=== PATIENT | female | born 1940 | race Caucasian/White ===

== ENCOUNTER 2021-07-12 13:41 | Emergency (ER) | payer MEDICARE ==
--- NOTE | 2021-07-12 14:32 | ED Physician Documentation ---
History of Present Illness - Stated complaint Stated Complaint: GLF - Chief complaint Chief Complaint: Trauma Hd/Nk - History obtained from History obtained from: Patient, Family - History of Present Illness Timing: Today Pain level max: 8 Pain level now: 8 - Additonal information Additional information: 80-year-old female presents to the emergency department after she was on her deck with her walker today when her walker fell off the deck, she fell backwards landed on her left side injuring her neck, head neck, shoulder and left ribs. Worse with movement, better with rest. She is on Plavix. She used to be on Eliquis but has been off this for 2 months. No numbness or tingling. Placed in a cervical collar by EMS. Brought in for evaluation. She states she was able to walk after the event. No hip pain. Review of Systems Ten Systems: 10 systems reviewed and negative Constitutional: denies: Fever, Chills Nose: denies: Rhinorrhea / runny nose, Congestion Respiratory: denies: Dyspnea, Cough GI: denies: Nausea, Vomiting, Diarrhea Skin: denies: Rash Musculoskeletal: denies: Neck pain, Back pain Neurologic: denies: Headache PD PAST MEDICAL HISTORY - Past Medical History Past Medical History: Yes Cardiovascular: Hypertension, High cholesterol, Coronary artery disease - Present Medications Home Medications: Ambulatory Orders Medication Instructions Recorded Confirmed Oxycodone HCl [Roxicodone] 5 - 10 mg PO Q6H PRN #20 tablet 07/12/21 - Allergies Allergies/Adverse Reactions: Allergies Allergy/AdvReac Type Severity Reaction Status Date / Time No Known Drug Allergies Allergy Verified 07/12/21 13:56 PD ED PE NORMAL - Vitals Vital signs reviewed: Yes - General General: Alert and oriented X 3, No acute distress, Well developed/nourished - HEENT HEENT: PERRL, Moist mucous membranes - Neck Neck: Supple, no meningeal sign, Other (Tender palpation upper and mid C-spine. No step-off or deformity. Cervical collar in place) - Cardiac Cardiac: RRR, Strong equal pulses - Respiratory Respiratory: No respiratory distress, Clear bilaterally - Abdomen Abdomen: Normal bowel sounds, Soft, Non tender, Non distended - Derm Derm: Warm and dry - Extremities Extremities: Other - Neuro Neuro: Alert and oriented X 3 - Psych Psych: Normal mood, Normal affect - Free text exam Free text exam: Tender to palpation over the left anterior ribs. Reproduces her pain. No crepitus or ecchymosis. Also tender to palpation over the left shoulder, limited range of motion of the glenohumeral joint secondary to pain. No gross deformity. Neurovascular intact. Otherwise normal examination of the arm. Normal examination of the bilateral hips. Normal examination of the right arm. Results - Vitals Vitals: Vital Signs - 24 hr 07/12/21 07/12/21 07/12/21 13:51 16:20 16:50 Temperature 36.7 C Heart Rate 78 70 Respiratory 16 16 Rate Blood Pressure 144/65 H 130/48 L O2 Saturation 94 92 94 Oxygen O2 Source Room air - Rads (name of study) Head CT. Radiology: Final report received, EMP read contemporaneously, See rad report Cervical spine CT Radiology: Final report received, EMP read contemporaneously, See rad report Chest without CT Radiology: Final report received, EMP read contemporaneously, See rad report Left shoulder x-ray Radiology: Final report received, EMP read contemporaneously, See rad report PD MEDICAL DECISION MAKING - ED course Complexity details: reviewed results, re-evaluated patient, considered differential, d/w patient, d/w philatelic consultant ED course: 80-year-old female status post ground-level fall. She does have a mildly displaced fracture of the sternal manubrium and mildly displaced rib fractures. She has come to abnormalities of the left kidney, possible masslike. No outside imaging is available. She will have a follow-up CT with her doctor. She also has a spiculated lung mass, suspicious for malignancy. She will follow-up with her doctor for this for a CT scan as well. Her pain is well controlled. No hypoxia. No respiratory distress. Does not want to be admitted. Patient is well-appearing, nontoxic. Afebrile. Patient counseled regarding signs and symptoms for which I believe and urgent re-evaluation would be necessary. Patient with good understanding of and agreement to plan and is comfortable going home at this time This document was made in part using voice recognition software. While efforts are made to proofread this document, sound alike and grammatical errors may occur. CT chest IMPRESSION: Mildly displaced fracture of the sternal manubrium with mildly displaced fractures of the immediately adjacent anterior most left first, second, and third ribs. Contour abnormalities of the left kidney which appear masslike. Correlation with any prior outside imaging would be helpful to document stability. The absence of any prior outside imaging, nonemergent routine CT of the abdomen and pelvis should be obtained. Spiculated lung mass, highly suspicious for malignancy. CT Cervical Spine IMPRESSION: No definite CT evidence of acute traumatic cervical spine injury. However, there is asymmetric widening of the left C3-C4 facet and of the right C4-C5 facet. This is not favored to represent an acute traumatic process, as there is extensive degenerative change with irregular erosions along the opposing facet surfaces in addition to extensive subchondral cystic change and sclerosis. Ossific densities within and adjacent to the facets at these locations are likely degenerative or dystrophic. Correlate for corresponding focal point tenderness. MRI could be considered to evaluate for ligamentous injury, although the appearance is favored to represent degenerative change. CT HEAD IMPRESSION: 1. No acute intracranial process. 2. Moderate atrophy and chronic microvascular ischemic changes. Departure - Departure Disposition: 01 Home, Self Care Clinical Impression: Lung mass, Kidney mass Sternum fx Qualifiers: Encounter type: initial encounter Sternal location: body of sternum Fracture type: closed Qualified Code(s): S22.22XA - Fracture of body of sternum, initial encounter for closed fracture Left rib fracture Qualifiers: Encounter type: initial encounter Rib fracture type: multiple ribs Fracture type: closed Qualified Code(s): S22.42XA - Multiple fractures of ribs, left side, initial encounter for closed fracture Condition: Good Instructions: ED Fx Rib Follow-Up: Alayna Hernandez MD [Primary Care Provider] - Prescriptions: Oxycodone HCl [Roxicodone] 5 - 10 mg PO Q6H PRN #20 tablet PRN Reason: Pain Comments: You can use the oxycodone at home as needed for pain. Please follow-up with your doctor for further care. Return if you worsen. There is a lung mass on your CT scan as well as a mass in your kidney. These will both need further imaging with your doctor. The readings are listed below. Your prescriptions were sent to the [facility] pharmacy CT chest IMPRESSION: Mildly displaced fracture of the sternal manubrium with mildly displaced fractures of the immediately adjacent anterior most left first, second, and third ribs. Contour abnormalities of the left kidney which appear masslike. Correlation with any prior outside imaging would be helpful to document stability. The absence of any prior outside imaging, nonemergent routine CT of the abdomen and pelvis should be obtained. Spiculated lung mass, highly suspicious for malignancy. CT Cervical Spine IMPRESSION: No definite CT evidence of acute traumatic cervical spine injury. However, there is asymmetric widening of the left C3-C4 facet and of the right C4-C5 facet. This is not favored to represent an acute traumatic process, as there is extensive degenerative change with irregular erosions along the opposing facet surfaces in addition to extensive subchondral cystic change and sclerosis. Ossific densities within and adjacent to the facets at these locations are likely degenerative or dystrophic. Correlate for corresponding focal point tenderness. MRI could be considered to evaluate for ligamentous injury, although the appearance is favored to represent degenerative change. CT HEAD IMPRESSION: 1. No acute intracranial process. 2. Moderate atrophy and chronic microvascular ischemic changes. I am prescribing a short course of narcotic pain medication for you. These are potentially dangerous and addictive medications that should be used carefully. These medications may constipate you. Take an gbki-rtp-[id number] stool softener (docusate) twice daily with plenty of water while taking these medications. If you go 24 hours without a bowel movement, take [id number]-pni-[id number] miralax, per package instructions. Do not drink or drive while taking these medications. If you received narcotic or sedating medications while in the emergency department, do not drive for 24 hours. Store this medication in a safe, secure place and out of reach of children. It is a violation of federal law to give or sell this medication to another person or to use in a manner other than prescribed. The ED will not refill narcotic prescriptions, including prescriptions lost or stolen. To dispose of unwanted medications: 1. [facility] at [address] in [place] has a medication drop box. They accept prescription medications (in pill form) Friday through Friday 9:00 a.m. to 5:00 p.m. 2. The [facility] accepts prescription medications (in pill form only) for disposal year round. Call for more information. 3. Contact the [facility] for the next [facility] sponsored prescription drug collection event. , [phone], or [phone]; Discharge Date/Time: 07/12/21 17:16
--- NOTE | 2021-07-12 15:05 | XRAY Report ---
PROCEDURE: Shoulder 3 View LT INDICATIONS: fall, L shoulder pain TECHNIQUE: 3 views of the shoulder were acquired. COMPARISON: None. FINDINGS: Bones: No fractures or dislocations. No suspicious bony lesions. Visualized ribs appear intact. P eriarticular osteophyte formation at the acromioclavicular and glenohumeral joints. Soft tissues: Small focus of calcification within the rotator cuff. IMPRESSION: 1. Osteoarthritis. 2. Rotator cuff calcific tendinitis. 3. No acute fracture. No osseous lesion. If symptoms and/or clinical suspicion for pathology continue , further assessment with repeat plain films, or advanced imaging (e.g., CT, MRI, or bone scan) is re commended for further assessment. Reviewed by: Edward Dickson MD on 07/12/2021 3:04 PM PDT Approved by: Edward Dickson MD on 07/12/2021 3:04 PM PDT Station ID: [id number]
[2021-07-12] MEDS: HYDROmorphone 1 MG/ML CARPUJECT IVP STA (15:10)
--- NOTE | 2021-07-12 16:01 | CT Report ---
PROCEDURE: HEAD WO INDICATIONS: fall, head injury, on plavix TECHNIQUE: Noncontrast 4.5 mm thick angled axial sections acquired from the foramen magnum to the vertex. For r adiation dose reduction, the following was used: automated exposure control, adjustment of mA and/or kV according to patient size. COMPARISON: None. FINDINGS: Image quality: Excellent. The ventricular system and cortical sulci demonstrate atrophy, consistent for patient's stated age. There are areas of hypodensity in the periventricular and subcortical white matter. There is no acut e intra or extra-axial fluid collection. No acute hemorrhage, mass lesion or midline shift. Brainst em is unremarkable. 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 Globes are symmetrical. Sinuses are aerated. Osseous structures are intact. IMPRESSION: 1. No acute intracranial process. 2. Moderate atrophy and chronic microvascular ischemic changes. Reviewed by: Doris Person MD on 07/12/2021 3:59 PM PDT Approved by: Doris Person MD on 07/12/2021 3:59 PM PDT Station ID: [id number]
--- NOTE | 2021-07-12 16:05 | CT Report ---
PROCEDURE: CERVICAL SPINE WO INDICATIONS: fall, neck pain TECHNIQUE: Noncontrast 3 mm thick sections acquired from the skull base to the T4 level. Sagittal and coronal r eformats were then constructed. For radiation dose reduction, the following was used: automated exp osure control, adjustment of mA and/or kV according to patient size. COMPARISON: None. FINDINGS: Image quality: Excellent. Bones: No fractures or dislocations. Visualized superior ribs are intact. Soft tissues: Prevertebral soft tissues are normal in thickness. No paravertebral hematomas. No ap ical pneumothoraces. IMPRESSION: No definite CT evidence of acute traumatic cervical spine injury. However, there is asymmetric wideni ng of the left C3-C4 facet and of the right C4-C5 facet. This is not favored to represent an acute tr aumatic process, as there is extensive degenerative change with irregular erosions along the opposing facet surfaces in addition to extensive subchondral cystic change and sclerosis. Ossific densities w ithin and adjacent to the facets at these locations are likely degenerative or dystrophic. Correlate for corresponding focal point tenderness. MRI could be considered to evaluate for ligamentous injury, although the appearance is favored to represent degenerative change. Reviewed by: Bony Silvestre MD on 07/12/2021 4:04 PM PDT Approved by: Bony Silvestre MD on 07/12/2021 4:04 PM PDT Station ID: [id number]
--- NOTE | 2021-07-12 16:18 | CT Report ---
PROCEDURE: CHEST WO INDICATIONS: fall, L rib pain TECHNIQUE: Noncontrast 1mm axial images were acquired from the pulmonary apices to the posterior costophrenic an gles. Axial 5 mm soft tissue kernel reconstructions were performed as well as 8 mm axial MIP and cor onal and sagittal 5 mm reformations. For radiation dose reduction, the following was used: automate d exposure control, adjustment of mA and/or kV according to patient size. COMPARISON: None available. FINDINGS: Image quality: Excellent. Lungs and pleura: Spiculated masslike opacity in the lateral aspect of the left upper lobe abutting t he fissure is nonspecific, potentially representing a solid mass although round pneumonia or another infectious process could appear similar. There are hazy interstitial and airspace opacities throughou t the remaining lungs suggestive of pulmonary edema. Mediastinum: Heart size is normal. No pericardial effusion. No mediastinal adenopathy by size crit eria. Thoracic aorta and central pulmonary arteries are normal in size. Esophagus is normal in johnathan kailey. No hiatal hernia. Bones and chest wall: Mildly displaced fracture of the upper sternal manubrium. Mildly displaced frac ture of the left anterior first first, second, third ribs near their junction with the costochondral cartilage. IMPRESSION: Mildly displaced fracture of the sternal manubrium with mildly displaced fractures of the immediately adjacent anterior most left first, second, and third ribs. Contour abnormalities of the left kidney which appear masslike. Correlation with any prior outside im aging would be helpful to document stability. The absence of any prior outside imaging, nonemergent r outine CT of the abdomen and pelvis should be obtained. Spiculated lung mass, highly suspicious for malignancy. Reviewed by: Bony Silvestre MD on 07/12/2021 4:16 PM PDT Approved by: Bony Silvestre MD on 07/12/2021 4:16 PM PDT Station ID: [id number]
[2021-07-12 16:24] VITALS: BP 130/48
== END 2021-07-12 17:16 | disposition home or self-care (01) ==
LOC: EDUNIT# → ED 13:41
DX: S22.22XA Fracture of body of sternum, initial encounter for closed fracture (principal); S22.42XA Multiple fractures of ribs, left side, initial encounter for closed fracture; R91.8 Other nonspecific abnormal finding of lung field; N28.89 Other specified disorders of kidney and ureter; W01.0XXA Fall on same level from slipping, tripping and stumbling without subsequent striking against object, initial encounter; Y92.008 Other place in unspecified non-institutional (private) residence as the place of occurrence of the external cause; Z79.02 Long term (current) use of antithrombotics/antiplatelets
CPT/HCPCS: 70450; 71250; 72125; 73030; 96374; 99284; J1170

== ENCOUNTER 2021-11-05 13:56 | Outpatient (CLI) | payer MEDICARE | END 2021-11-05 13:57 | disposition critical access hospital (66) | LOC: EMS 13:56 | DX: I46.9 Cardiac arrest, cause unspecified (principal) | CPT/HCPCS: A0425; A0427 ==

== ENCOUNTER 2021-11-05 14:07 | Emergency (ER) | payer MEDICARE ==
[2021-11-05] MEDS ORDERED: MAGNESIUM SULFATE 2 GRAM 2 GM/50 ML BAG IV ONE (14:16)
[2021-11-05] MEDS ORDERED: ASPIRIN 300 MG SUPP PR STA (14:16)
[2021-11-05] MEDS ORDERED: AMIODARONE 150 MG/3 ML VIAL IVP STA (14:16)
[2021-11-05 14:21] LABS: BASOPHILS # (AUTO) 0.1 10^3/uL (0.0-0.1); BASOPHILS % (AUTO) 0.5 %; EOSINOPHILS # (AUTO) 0.2 10^3/uL (0.0-0.7); EOSINOPHILS % (AUTO) 1.3 %; HCT - HEMATOCRIT 38.2 % (37.0-47.0); LYMPHOCYTES # (AUTO) 3.3 10^3/uL (1.5-3.5); LYMPHOCYTES % (AUTO) 22.9 %; MEAN CORPUSCULAR HEMOGLOBIN 27.2 pg (27.0-31.0); MEAN CORPUSCULAR HGB CONC 31.4 g/dL (32.0-36.0); MEAN CORPUSCULAR VOLUME 86.6 fL (81.0-99.0); MONOCYTES # (AUTO) 1.3 10^3/uL (0.0-1.0); MONOCYTES % (AUTO) 8.7 %; NEUTROPHILS # (AUTO) 9.5 10^3/uL (1.5-6.6); NEUTROPHILS % (AUTO) 66.2 %; PLT - PLATELET COUNT 261 10^3/uL (130-450); RED BLOOD COUNT 4.41 10^6/uL (4.20-5.40); RED CELL DISTRIBUTION WIDTH 15.8 % (12.0-15.0); WHITE BLOOD COUNT 14.3 x10^3/uL (4.8-10.8)
--- NOTE | 2021-11-05 14:28 | XRAY Report ---
PROCEDURE: Chest 1 View X-Ray INDICATIONS: Chest Pain TECHNIQUE: One view of the chest was acquired. COMPARISON: X-ray chest 09/25/2021 FINDINGS: Surgical changes and devices: Pacer leads obscure partial visualization of the left hemithorax. Lungs and pleura: Mild appearance of increased vascularity. Mediastinum: Mediastinal contours appear normal. Heart size is normal. Bones and chest wall: No suspicious bony lesions. Overlying soft tissues appear unremarkable. IMPRESSION: Mild appearance of increased vascularity suggestive of edema. Reviewed by: Doris Person MD on 11/05/2021 2:27 PM PDT Approved by: Doris Person MD on 11/05/2021 2:27 PM PDT Station ID: [id number]
--- NOTE | 2021-11-05 14:28 | ED Physician Documentation ---
PD HPI CHEST PAIN - Stated complaint Stated Complaint: ABD PX - Chief complaint Chief Complaint: Cardiac - History obtained from History obtained from: Patient, EMS - History of Present Illness Pain level max: 3 Pain level now: 2 Quality: Pressure, Tightness, Aching Location: Epigastric Radiation: No: Jaw, Neck, Back, Abdominal, Left upper extremity, Right upper extremity Improved by: Nothing Worsened by: Other (nothing) Associated symptoms: Diaphoresis, General Weakness Similar symptoms before: Has not had sx before Recently seen: Not recently seen - Additional information Additional information: 81-year-old female presents to the emergency department complaining of epigastric abdominal pain that started after lunch. 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 EMS was concerned for an ST elevation CO. They state that she went into ventricular fibrillation and was defibrillated x1. They did not give any medications. Patient is cool and clammy. Patient denies any cardiac history. She states no history of stents or bypasses. Review of Systems Ten Systems: 10 systems reviewed and negative Constitutional: denies: Fever, Chills GI: denies: Vomiting, Diarrhea Skin: denies: Rash Musculoskeletal: denies: Neck pain, Back pain Neurologic: denies: Headache PD PAST MEDICAL HISTORY - Past Medical History Past Medical History: Yes Cardiovascular: Hypertension, High cholesterol, Coronary artery disease - Present Medications Home Medications: Ambulatory Orders Medication Instructions Recorded Confirmed Oxycodone HCl [Roxicodone] 5 - 10 mg PO Q6H PRN #20 tablet 07/12/21 - Allergies Allergies/Adverse Reactions: Allergies Allergy/AdvReac Type Severity Reaction Status Date / Time amoxicillin AdvReac Rash Verified 11/05/21 14:26 celecoxib [From Celebrex] AdvReac Rash Verified 11/05/21 14:26 ibuprofen AdvReac Rash Verified 11/05/21 14:26 naproxen AdvReac Rash Verified 11/05/21 14:26 pregabalin [From Lyrica] AdvReac Rash Verified 11/05/21 14:26 PD ED PE NORMAL - Vitals Vital signs reviewed: Yes - General General: Alert and oriented X 3, Other (Drowsy but arousable. Pale appearing.) - HEENT HEENT: PERRL, Moist mucous membranes, Pharynx benign - Neck Neck: Supple, no meningeal sign - Cardiac Cardiac: RRR, Strong equal pulses - Respiratory Respiratory: No respiratory distress, Clear bilaterally - Abdomen Abdomen: Soft, Non tender, Non distended - Back Back: No spinal TTP - Derm Derm: Other (Moist, cool) - Extremities Extremities: No edema - Neuro Neuro: Other (drowsy, oriented x 3) - Psych Psych: Normal mood, Normal affect Results - Vitals Vitals: Vital Signs - 24 hr 11/05/21 11/05/21 11/05/21 14:17 14:27 14:30 Temperature 35.9 C L Heart Rate 97 91 90 Respiratory 21 14 21 Rate Blood Pressure 169/120 H 134/69 H 116/65 O2 Saturation 94 97 94 If not protocol 4 4 : Oxygen Flow, liters/minute Oxygen O2 Source Nasal cannula - EKG (time done) 1409 Rate: Rate (enter#) (102) Rhythm: Atrial fibrillation Ischemia: ST elevation c/w ischemia - Labs Labs: Laboratory Tests 11/05/21 11/05/21 11/05/21 14:12 14:12 14:12 WBC 14.3 H RBC 4.41 Hgb 12.0 Hct 38.2 MCV 86.6 MCH 27.2 MCHC 31.4 L RDW 15.8 H Plt Count 261 MPV 12.0 H Neut # (Auto) 9.5 H Lymph # (Auto) 3.3 Davie # (Auto) 1.3 H Eos # (Auto) 0.2 Baso # (Auto) 0.1 Absolute Nucleated RBC 0.00 Nucleated RBC % 0.0 Sodium 138 Potassium 3.8 Chloride 98 L Carbon Dioxide 26 Anion Gap 14.0 H BUN 25 H Creatinine 1.0 Estimated GFR (MDRD) 53 L Glucose 186 H Calcium 9.7 Total Bilirubin 0.6 AST 28 ALT 17 Alkaline Phosphatase 107 Troponin I High Sens 30.9 H* Total Protein 8.1 Albumin 3.9 Globulin 4.2 Albumin/Globulin Ratio 0.9 L Lipase 27 Nasal Adenovirus (PCR) Nasal B. parapertussis DNA (PCR) Nasal Coronavir 229E PCR Nasal Coronavir HKU1 PCR Nasal Coronavir NL63 PCR Nasal Coronavir OC43 PCR Nasal Enterovir/Rhinovir PCR Nasal Influenza B PCR Nasal Influenza A PCR Nasal Parainfluen 1 PCR Nasal Parainfluen 2 PCR Nasal Parainfluen 3 PCR Nasal Parainfluen 4 PCR Nasal RSV (PCR) Nasal B.pertussis DNA PCR Nasal C.pneumoniae (PCR) Justice Human Metapneumo PCR Nasal M.pneumoniae (PCR) Nasal SARS-CoV-2 (PCR) 11/05/21 14:20 WBC RBC Hgb Hct MCV MCH MCHC RDW Plt Count MPV Neut # (Auto) Lymph # (Auto) Davie # (Auto) Eos # (Auto) Baso # (Auto) Absolute Nucleated RBC Nucleated RBC % Sodium Potassium Chloride Carbon Dioxide Anion Gap BUN Creatinine Estimated GFR (MDRD) Glucose Calcium Total Bilirubin AST ALT Alkaline Phosphatase Troponin I High Sens Total Protein Albumin Globulin Albumin/Globulin Ratio Lipase Nasal Adenovirus (PCR) NOT DETECTED Nasal B. parapertussis DNA (PCR) NOT DETECTED Nasal Coronavir 229E PCR NOT DETECTED Nasal Coronavir HKU1 PCR NOT DETECTED Nasal Coronavir NL63 PCR NOT DETECTED Nasal Coronavir OC43 PCR NOT DETECTED Nasal Enterovir/Rhinovir PCR NOT DETECTED Nasal Influenza B PCR NOT DETECTED Nasal Influenza A PCR NOT DETECTED Nasal Parainfluen 1 PCR NOT DETECTED Nasal Parainfluen 2 PCR NOT DETECTED Nasal Parainfluen 3 PCR NOT DETECTED Nasal Parainfluen 4 PCR NOT DETECTED Nasal RSV (PCR) NOT DETECTED Nasal B.pertussis DNA PCR NOT DETECTED Nasal C.pneumoniae (PCR) NOT DETECTED Justice Human Metapneumo PCR NOT DETECTED Nasal M.pneumoniae (PCR) NOT DETECTED Nasal SARS-CoV-2 (PCR) NOT DETECTED - Rads (name of study) cxr Radiology: Final report received, EMP read contemporaneously, See rad report (Mild appearance of increased vascularity suggestive of edema. ) PD MEDICAL DECISION MAKING - ED course Complexity details: reviewed results, re-evaluated patient, considered differential, d/w patient, d/w family, d/w account consultant ED course: 81-year-old female with an ST elevation CO. The patient was started on a heparin drip. Given amiodarone and magnesium for her ventricular fibrillation. IV access established. Patient will be transferred to [facility] for further cardiology care. [facility] is unavailable and will be delayed approximately 30 minutes due to refueling. Therefore the patient will be sent by ground. Discussed the case with Dr. Chicas, emergency department physician who graciously accepts in transfer.COBRA forms completed This document was made in part using voice recognition software. While efforts are made to proofread this document, sound alike and grammatical errors may occur. - Critical Care Time(min): 40 Time Includes: Direct patient care, Reassess patient, Document care, Coordinate care, See progress note Data interpretation: See progress note Procedures included in critical care time: See progress note Procedures excluded from critical care time: See progress note Departure - Departure Disposition: 02 Transfer Acute Care Hosp Clinical Impression: Ventricular fibrillation STEMI (ST elevation myocardial infarction) Qualifiers: Involved coronary artery: unspecified coronary artery Qualified Code(s): I21.3 - ST elevation (STEMI) myocardial infarction of unspecified site Condition: Stable Discharge Date/Time: 11/05/21 14:48
[2021-11-05 14:31] LABS: ALBUMIN 3.9 g/dL (3.2-5.5); ALBUMIN/GLOBULIN RATIO 0.9 (1.0-2.2); BILIRUBIN,TOTAL 0.6 mg/dL (0.2-1.0); CALCIUM 9.7 mg/dL (8.5-10.3); POTASSIUM 3.8 mmol/L (3.5-5.0); TOTAL PROTEIN 8.1 g/dL (6.7-8.2)
[2021-11-05] MEDS ORDERED: AMIODARONE 150 MG/100 ML 100 ML IV ONE ×2 (14:38→14:39)
[2021-11-05] MEDS ORDERED: AMIODARONE 360 MG/200 ML 200 ML IV ONE (14:38)
[2021-11-05] MEDS ORDERED: HEPARIN 25000UNITS/500ML (D5W) 25,000 UNIT/500 ML BAG IV SCH ×2 (14:46→15:00)
[2021-11-05 15:05] VITALS: BP 116/65
[2021-11-05 15:37] LABS: B. PARAPERTUSSIS- RESP PCR PAN NOT DETECTED; B. PERTUSSIS- RESP PCR PANEL NOT DETECTED; C. PNEUMONIAE- RESP PCR PANEL NOT DETECTED; CORONAVIRUS 229E-RESP PCR NOT DETECTED; CORONAVIRUS HKU1-RESP PCR NOT DETECTED; CORONAVIRUS NL63-RESP PCR NOT DETECTED; CORONAVIRUS OC43-RESP PCR NOT DETECTED; HUMAN METAPNEUMOVIRUS NOT DETECTED; INFLUENZA A- RESP PCR PANEL NOT DETECTED; INFLUENZA B - RESP PCR PANEL NOT DETECTED; M. PNEUMONIAE- RESP PCR PANEL NOT DETECTED; PARAINFLUENZA VIRUS 1 NOT DETECTED; PARAINFLUENZA VIRUS 2 NOT DETECTED; PARAINFLUENZA VIRUS 3 NOT DETECTED; PARAINFLUENZA VIRUS 4 NOT DETECTED; RHINOVIRUS/ENTEROVIRUS NOT DETECTED; RSV- RESP PCR PANEL NOT DETECTED; SARS-CoV-2 -RESP PCR PANEL NOT DETECTED
== END 2021-11-05 14:48 | disposition short-term general hospital (02) ==
LOC: EDUNIT# → EDBD → ED 14:07
DX: I21.3 ST elevation (STEMI) myocardial infarction of unspecified site (principal); I49.01 Ventricular fibrillation; I10 Essential (primary) hypertension; Z20.822 Contact with and (suspected) exposure to COVID-19
CPT/HCPCS: 36415; 71045; 80053; 83690; 84484; 85025; 87633; 93005; 96374; 96375; 99291; A9270; J0282

== ENCOUNTER 2021-11-05 14:46 | Outpatient (CLI) | payer MEDICARE | END 2021-11-05 14:47 | disposition short-term general hospital (02) | LOC: EMS 14:46 | PROVIDERS: ATTEND Emergency Medicine | DX: I21.3 ST elevation (STEMI) myocardial infarction of unspecified site (principal) | CPT/HCPCS: A0425; A0427 ==